=== PATIENT | female | born 1990 | race Caucasian/White ===

== ENCOUNTER 2024-12-07 09:27 | Outpatient (AMB) | payer BC, SELFPAY ==
[2024-12-07 09:34] VITALS: BP 134/81; PULSE 60; RESP 16; TEMP 36.2; O2SAT 98; BMI 25.0
--- NOTE | 2024-12-07 09:34 | AMB.GYNCLNOT ---
Vital Signs 12/07/24 09:34 Height 1.73 m Height Method Stated Weight 74.616 kg Weight Measurement Method Standing Scale BMI 25.0 BP 134/81 H Blood Pressure Source Automatic Cuff Blood Pressure Location Left Upper Arm Position Sitting Respiration 16 Pulse 60 Pulse Source Monitor Temp 97.2 F Temp Source Oral Pulse Oximetry (%) 98 Oxygen Delivery Method Room Air Allergies/Home Meds Allergies & Medications Allergies No Known Allergies Allergy (Verified 12/07/24 09:36) Medication Reconciliation No Known Home Medications 12/07/24 [History Confirmed 12/07/24] Intake Visit Data Collection New Patient or Established: New Patient (never been to [facility]) Reason for Visit:: Annual exam, discuss hormones. 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 1. Little interest or pleasure in doing things: not at all 2. Feeling down, depressed, or hopeless: not at all Total score: 0 PHQ-9 3. Trouble falling or staying asleep, or sleeping too much: Not at all 4. Feeling tired or having little energy: Not at all 5. Poor appetite or overeating: Not at all 6. Feeling bad about yourself - or that you are a failure or have let yourself or your family down: Not at all 7. Trouble concentrating on things, such as reading the newspaper or watching television: Not at all 8. Moving or speaking so slowly that other people could have noticed? - Or the opposite - being so fidgety or restless that you have been moving around a lot more than usual: not at all 9. Thoughts that you would be better off or of hurting yourself in some way: Not at all Total score: 0 If you checked off any problems, how difficult have these problems made it for you to do your work, take care of things at home, or get along with other people?: not difficult at all Source: Developed by Drs. Daniel Hidalgo, Tabitha Nelson, Amadeo Forbes and colleagues, with an educational claudia from [employer]. Depression screen completed yes Social History Living Situation History Marital Status: Lives With: Family Housing: House Housing Other:: Has 3 children at home. Works at [employer] part-time Tobacco History Smoking Status: Never smoker Domestic Abuse History Do You Feel Safe at Home: Yes Past Medical History Past Medical History Have you ever been diagnosed with any of the following: Neurological Problems Seizures: No Migraine: No Cardiology Problems Cardiac Arrhythmia: No Heart Murmur: No Hypertension: No Respiratory Problems Asthma: No Pulmonary Embolism: No Sleep Apnea: No Stomache/Intestinal Problems Celiac Disease: No Gall Bladder Disease: No Gastroesophageal Reflux Disease: No Genital/Urinary Problems Renal Disease: No Kidney Stones: No Reproductive Problems Endometriosis: No Fibroids: No Genital Herpes: No Gonorrhea: No Pelvic Inflammatory Disease: No Polycystic Ovarian Syndrome: No Previous Pregnancies: Yes (Vaginal delivery x 3 in the past 1 miscarriage in the past) Musculoskeletal Problems Arthritis: No Rheumatoid Arthritis: No Fibromyalgia: No Head,Eye,Nose,Throat Problems Glaucoma: No Endocrine Problems Diabetes Mellitus Type 2: No Hyperthyroidism: No Hypothyroidism: No Systemic Lupus Erythematosus: No Blood Problems Anemia: No Psychologic Problems Depression: No Anxiety: Yes (Patient states she is always been anxious and this is getting worse) Other Problems Hospitalization: Yes (For childbirth x 3) Autoimmune Disease: No Cosmetic Surgery: No Surgical History Appendectomy: No Bariatric Surgery: No Breast Surgery: No History of Present Illness HPI Narrative The patient is a 34 y/o who delivered all her babies at [facility] with Dr Wong. She had one SAB in 2019. They are using natural family planning for contraception. She presents for an annual exam. She reports fatigue, difficulty sleeping, and feels her hormones are out of whack . She reports night sweats, and increased weight gain. No hot flashes. Her cycles are regular, monthly, 7 days and heavy. She reports decreased libido and admits she has a short fuse . She has labs drawn from a primary care provider from [facility] on her phone. A CBC, thyroid panel are all WNL. B12 on lower end of WNL at around 400. CBC WNL. No records except labs are available for review. She is . Her spouse is a [employer]. She has a son, Perry Bailey who is 11, a daughter Shannon who is 9, and a son Ismael who is 7. Review of Systems Review of Systems Narrative Review of Systems: + fatigue +night sweats+ irritability+ decreased libido. No hot flashes. No irregular cycles. Systems Reviewed: All systems reviewed, normal except as documented Exam General Limitations: no limitations General Appearance: alert, in no apparent distress, comfortable, cooperative, healthy appearing and other (Seems tired.) Head Head exam: atraumatic, normocephalic and normal inspection Neck Neck exam: Present normal inspection, full ROM and trachea midline Chest Chest inspection: Present normal inspection and symmetric chest wall rise Exp Chest Breast: bilateral: other (Normal breast exam bilaterally) Resp Respiratory exam: Present normal lung sounds bilaterally Card Cardiovascular exam: Present regular rate, normal rhythm and normal heart sounds Abdominal Abdominal exam: Present soft and normal bowel sounds External exam: Present normal external exam Speculum exam: Present normal speculum exam Bimanual exam: Present normal bimanual exam Extremities Extremities exam: Present normal inspection and full ROM Neuro Neurological exam: Present alert, oriented X3 and CN II-XII intact Psych Psychiatric exam: Present normal affect and normal mood Skin Skin exam: Present warm, dry, intact and normal color Assessment & Plan Diagnosis / Problem List (1) Women's annual routine gynecological examination: Status: Acute Plan: Pap with HPV co-testing performed. Breast exam done and encouraged. (2) Hormone imbalance: Status: Acute Plan: Check all thyroid levels including TPO. Check day 3 FSH,LH and estradiol. Check KALLIE, RF and ESR. Offered OCPS to even out hormones, pt declines. (3) Anxiety: Status: Acute Plan: Pt ok with a trail of Zoloft 50 qHS. Recommended counseling as pt admits she has been anxious for awhile. Lifestyle modifications. (4) Heavy menstrual bleeding: Status: Acute Qualifiers: Menorrhagia type: with regular cycle Qualified Code(s): N92.0 - Excessive and frequent menstruation with regular cycle Plan: Offered Mirena IUD or OCPs. Pt declines both. Declines ablation. Declines U/S Additional Plan Follow Up: 6 Months Office Procedures OB Clinic LOC & Office Proc's Nursing/Assessment Patient Status: Initial/New Patient OB Clinic Nursing Assessment: BP Monitoring, Medication Reconciliation, Update PMH in EMR and Vital Signs OB Clinic Coordination of Care: Consent,records obtained, informed consent, Education Simp Pt/Fam, Lab and Imaging orders and Staff clarify orders Miscellaneous Interventions: Breast Exam and Pelvic/Pap Smear Set up New Patient Charge New Patient Point Assignment: 1139 New Patient Point Charge: TIRE MAKER Level 4 ([id number]) In Clinic Procedures Pap Smear: Yes HEEL BLACKER: Papsmear Pap Smear Procedure Chaparone in room during procedure?: No Pre-op diagnosis general: Annual well woman exam Post-op diagnosis procedure note: Same Procedure Notes:: Pap with co-testing for HPV performed Papsmear completed: yes
== END 2024-12-07 10:17 | disposition home or self-care (01) ==
LOC: HODSOBC 09:27
PROVIDERS: Supervising Provider Obstetrics & Gynecology; Visit Provider Obstetrics & Gynecology
DX: Z01.419 Encounter for gynecological examination (general) (routine) without abnormal findings (principal); Z11.51 Encounter for screening for human papillomavirus (HPV); N92.0 Excessive and frequent menstruation with regular cycle; F41.9 Anxiety disorder, unspecified; E34.9 Endocrine disorder, unspecified
CPT/HCPCS: 99204; Q0091; G0463